=== PATIENT | male | born 1975 | race Caucasian/White ===

== ENCOUNTER 2017-01-16 08:08 | Emergency (ER) | payer MEDICAID ==
[~2017-01-16 08:08] MED LIST: AMBIEN5 MG; ASPIRIN325 M3 PO; ATENOLOL25 MG; ATENOLOL25 MG PO; CATAFLAM50 MG PO; CELEBREX200 M1 PO; CYCLOBENZAPRINE10 M1 PO; CYCLOBENZAPRINE5 M1 PO; DESYREL50 MG; EXCEDRIN TABLET1 TAB; FISH OIL 1,0001 CA1 PO; FLEXERIL10 MG PO; GENPRIL200 MG; IBUPROFEN800 M1 PO; KLONOPIN0.5 MG PO; LAMICTAL100 M1 PO; LORTAB 5/500 TA1 TAB PO; LOVENOX40 MG/0.4 SQ; MILK OF MA2400 MG/10 PO; MILK OF MA400 MG/5 M PO; NAPROSYN500 MG PO; NAPROXEN500 M1 PO; NO MEDICATIONS; NORCO 10/325 TA1 TAB PO; NORCO 5/325 TAB1 TAB; NORCO 5/325 TAB1 TAB PO; NORCO 7.5/325 T1 TAB PO; NORFLEX100 MG PO; NUCYNTA50 M1 PO; NUCYNTA50 MG PO; OSTEOBYFLEX; OXYCODON-ACETA1 EAC4 PO; OXYCODONE/APAP PO; PAXIL20 M1 PO; PAXIL20 MG PO; PAXIL40 MG PO; PENICILLIN; PENICILLIN V P500 M1 PO; PERCOCET 5-3251 EACH PO; PERCOCET 5/3251 TAB PO; PRAZOSIN HCL1 M1 PO; PREDNISONE20 MG PO; PRILOSEC10 MG PO; PRILOSEC20 MG; PRILOSEC40 MG PO; PROVENTIL HFA6.7 G1 IH; PSYCH MEDS; ROXICODONE5 M2 PO; SENNA8.6 M2 PO; SENOKOT-S TABL1 EACH PO; SENOKOT-S TABLE1 TAB PO; SURFAK240 M2 PO; TAGAMET300 MG PO; TRAMADOL HCL50 MG PO; TYLENOL325 M2 PO; TYLENOL325 MG PO; TYLENOL500 MG PO; ULTRAM50 M1 PO; ULTRAM50 MG PO; VISTARIL50 MG PO; VITAMIN D1000 UNI1 PO; VITAMIN D250000 UNIT PO; XARELTO10 M1 PO; XARELTO10 MG PO; [UNRECOGNIZED DRUG - REMARK]
[2017-01-16] MEDS ORDERED: IBUPROFEN200 M2 PO (08:30)
[2017-01-16] MEDS ORDERED: NORCO 5-325 TA1 EACH PO (09:47)
[2017-05-24] MEDS ORDERED: ABILIFY5 M1 PO (15:45)
[2017-05-24] MEDS ORDERED: KLONOPIN0.5 M1 PO (15:45)
[2017-05-24] MEDS ORDERED: PERCOCET 5-3251 EACH PO (18:20)
[2017-07-19] MEDS ORDERED: PRAZOSIN HCL5 M1 PO (15:25)
[2017-07-19] MEDS ORDERED: CYCLOBENZAPRINE5 M1 PO (16:55)
[2017-07-19] MEDS ORDERED: PERCOCET 5-3251 EACH PO (16:55)
== END 2017-01-16 10:31 ==
LOC: EDMED 08:08
DX: S80.02XA Contusion of left knee, initial encounter (principal); S80.01XA Contusion of right knee, initial encounter; M54.5 Low back pain; I10 Essential (primary) hypertension; J45.909 Unspecified asthma, uncomplicated; F17.200 Nicotine dependence, unspecified, uncomplicated; W17.89XA Other fall from one level to another, initial encounter

== ENCOUNTER 2017-02-17 14:04 | Emergency (ER) | payer MEDICAID ==
[~2017-02-17 14:04] MED LIST changes: +IBUPROFEN200 M2 PO; +NORCO 5-325 TA1 EACH PO
[2017-02-17] MEDS ORDERED: ROBAXIN-750750 M1 PO (15:06)
[2017-05-24] MEDS ORDERED: ABILIFY5 M1 PO (15:45)
[2017-05-24] MEDS ORDERED: KLONOPIN0.5 M1 PO (15:45)
[2017-05-24] MEDS ORDERED: PERCOCET 5-3251 EACH PO (18:20)
[2017-07-19] MEDS ORDERED: PRAZOSIN HCL5 M1 PO (15:25)
[2017-07-19] MEDS ORDERED: CYCLOBENZAPRINE5 M1 PO (16:55)
[2017-07-19] MEDS ORDERED: PERCOCET 5-3251 EACH PO (16:55)
== END 2017-02-17 15:38 ==
LOC: EDMED 14:04
DX: M54.2 Cervicalgia (principal); Z90.49 Acquired absence of other specified parts of digestive tract; Z98.890 Other specified postprocedural states; F17.200 Nicotine dependence, unspecified, uncomplicated
CPT/HCPCS: J1170